=== PATIENT | female | born 1995 | race Caucasian/White ===

== ENCOUNTER 2017-03-06 13:17 | Emergency (ER) | payer SELFPAY ==
[2017-03-06 14:11] LABS: INFLUENZA A NEG (NEG); INFLUENZA B NEG (NEG)
== END 2017-03-06 14:41 | disposition home or self-care (01) ==
LOC: CED 13:17 → CFTX 13:17
DX: J06.9 Acute upper respiratory infection, unspecified (principal); F17.210 Nicotine dependence, cigarettes, uncomplicated
CPT/HCPCS: 87651; 87804; 99282